=== PATIENT | female | born 1995 | race Caucasian/White ===

== ENCOUNTER 2019-01-13 12:11 | Outpatient (CLI) | payer OTHER | END 2019-01-13 13:55 | disposition home or self-care (01) | LOC: OBT 12:11 → L-D 12:13 → OBT 13:55 | DX: O36.5930 Maternal care for other known or suspected poor fetal growth, third trimester, not applicable or unspecified (principal); Z3A.37 37 weeks gestation of pregnancy | CPT/HCPCS: 76818 ==

== ENCOUNTER 2019-01-17 09:52 | Outpatient (CLI) | payer OTHER | END 2019-01-17 11:55 | disposition home or self-care (01) | LOC: OBT 09:52 → L-D 09:53 → OBT 11:55 | DX: O36.5930 Maternal care for other known or suspected poor fetal growth, third trimester, not applicable or unspecified (principal); Z3A.38 38 weeks gestation of pregnancy | CPT/HCPCS: 76815; 76818 ==

== ENCOUNTER 2019-01-21 11:31 | Outpatient (CLI) | payer OTHER | END 2019-01-21 13:40 | disposition home or self-care (01) | LOC: OBT 11:31 → L-D 11:31 → OBT 13:40 | DX: O46.8X3 Other antepartum hemorrhage, third trimester (principal); O36.8130 Decreased fetal movements, third trimester, not applicable or unspecified; Z3A.38 38 weeks gestation of pregnancy | CPT/HCPCS: 76818 ==

== ENCOUNTER 2019-01-23 03:16 | Inpatient (IN) | payer OTHER ==
[2019-01-23] MEDS ORDERED: LACTATED RINGER'S 1,000 ML IV (03:40)
[2019-01-23] MEDS ORDERED: METHYLERGONOVINE 0.2 MG INJ IM ×2 (04:00→21:00)
[2019-01-23] MEDS ORDERED: OXYTOCIN 30 UNITS/LR 500 ML IV ×2 (04:00→21:00)
[2019-01-23] MEDS ORDERED: MISOPROSTOL 200 MCG TAB PR ×2 (04:00→21:00)
[2019-01-23] MEDS ORDERED: BUTORPHANOL 2 MG INJ IV ×2 (04:00)
[2019-01-23] MEDS ORDERED: CARBOPROST 250 MCG INJ IM ×2 (04:00→21:00)
[2019-01-23] MEDS: AMPICILLIN 2 GM/NS (PMX) 100 ML IV (04:19)
[2019-01-23] MEDS: LACTATED RINGER'S 1,000 ML IV ×3 (04:19→16:38)
[2019-01-23 04:41] LABS: ADD MAN DIFF? NO
[2019-01-23 04:43] LABS: BASOPHIL # 0.1 10^3/ul (0.0-0.1); BASOPHILS % 0.5 % (0.0-2.0); EOSINOPHILS # 0.1 10^3/ul (0.0-0.5); EOSINOPHILS % 0.8 % (0.0-7.0); HEMATOCRIT 37.5 % (37.0-47.0); HEMOGLOBIN 12.9 g/dl (12.0-16.0); LYMPHOCYTES # 2.5 10^3/ul (0.8-2.9); LYMPHOCYTES % 17.8 % (15.0-51.0); MEAN CORPUSCULAR HEMOGLOBIN 32.3 pg (29.0-33.0); MEAN CORPUSCULAR HGB CONC 34.4 g/dl (32.0-37.0); MEAN PLATELET VOLUME 11.9 fl (7.4-10.4); MONOCYTE # 0.9 10^3/ul (0.3-0.9); MONOCYTES % 6.3 % (0.0-11.0); NEUTROPHIL # 10.6 10^3/ul (1.6-7.5); PLATELET COUNT 218 10^3/UL (140-415); RED BLOOD COUNT 3.99 10^6/ul (4.20-5.40); RED CELL DISTRIBUTION WIDTH 11.7 % (11.5-14.5)
[2019-01-23 04:43] LABS: WHITE BLOOD COUNT 14.2 10^3/ul (4.8-10.8)
[2019-01-23 04:54] LABS: ADD UMIC YES; UR AMORPHOUS CRYSTAL FEW /HPF (NONE SEEN); UR ASCORBIC ACID NEGATIVE (NEGATIVE); UR BILIRUBIN (Dip) NEGATIVE (NEGATIVE); UR BLOOD (Dip) 3+ mg/dL (NEGATIVE); UR CLARITY SLIGHTLY CLOUDY (CLEAR); UR COLOR YELLOW (YELLOW); UR GLUCOSE (Dip) NEGATIVE (NEGATIVE); UR KETONES (Dip) NEGATIVE (NEGATIVE); UR LEUKOCYTE ESTERASE (Dip) 3+ Leu/ul (NEGATIVE); UR NITRITE (Dip) NEGATIVE (NEGATIVE); UR RBC 5 /HPF (0-5); UR SQUAMOUS EPITHELIAL CELL FEW /HPF (FEW); UR TOTAL PROTEIN (Dip) NEGATIVE (NEGATIVE); UR UROBILINOGEN (Dip) NEGATIVE (NEGATIVE); UR WBC 22 /HPF (0-5)
[2019-01-23 05:10] LABS: INR 0.78; PT RATIO 0.9
[2019-01-23 05:11] LABS: PARTIAL THROMBOPLASTIN TIME 27.7 Sec (23.0-35.0)
[2019-01-23 05:40] LABS: HEPATITIS B SURFACE ANTIGEN NEGATIVE (NEGATIVE)
[2019-01-23] MEDS ORDERED: NALOXONE (0.4 MG/ML) INJ IV (07:30)
[2019-01-23] MEDS ORDERED: DIPHENHYDRAMINE 50 MG INJ IV (07:30)
[2019-01-23] MEDS ORDERED: FENTAnyl 2MCG/ML-ROPIV 0.2% 100 ML (07:30)
[2019-01-23] MEDS ORDERED: ONDANSETRON 4 MG INJ IV (07:30)
[2019-01-23] MEDS: AMPICILLIN 1 GM/NS (PMX) 50 ML IV ×3 (08:52→16:38)
[2019-01-23 14:48] LABS: RAPID PLASMA REAGIN NONREACTIVE (NR)
[2019-01-23] MEDS: FENTAnyl 2MCG/ML-ROPIV 0.2% 100 ML BAG EPI (16:42)
[2019-01-23] MEDS: MINERAL OIL LIGHT 10 ML VIAL TOP (18:33)
[2019-01-23] MEDS: OXYTOCIN 30 UNITS/LR 500 ML IV ×2 (18:41→18:42)
[2019-01-23] MEDS: LIDOCAINE 1% (MPF) 30 ML INJ INJ (18:42)
[2019-01-23] MEDS: IBUPROFEN 600 MG TAB PO ×2 (19:34→23:50)
[2019-01-23] MEDS ORDERED: OXYCODONE/ASPIRIN (4.88/325) TAB PO ×2 (21:00)
[2019-01-23] MEDS ORDERED: ZOLPIDEM 5 MG TAB PO (21:00)
[2019-01-23] MEDS ORDERED: LANOLIN HPA 1 PKT TOP (21:00)
[2019-01-23] MEDS: SENNA/DOCUSATE NA (8.6MG/50MG) TAB PO (21:37)
[2019-01-23] MEDS: WITCH HAZEL/GLYCERIN PAD PR (21:37)
[2019-01-23] MEDS: BENZOCAINE 20% 56 ML SPRAY TOP (21:38)
[2019-01-24] MEDS: IBUPROFEN 600 MG TAB PO ×4 (05:20→23:51)
[2019-01-24 08:13] LABS: ADD MAN DIFF? NO
[2019-01-24 08:15] LABS: WHITE BLOOD COUNT 16.1 10^3/ul (4.8-10.8)
[2019-01-24 08:15] LABS: BASOPHIL # 0.1 10^3/ul (0.0-0.1); BASOPHILS % 0.3 % (0.0-2.0); EOSINOPHILS % 0.2 % (0.0-7.0); HEMATOCRIT 31.8 % (37.0-47.0); HEMOGLOBIN 10.8 g/dl (12.0-16.0); LYMPHOCYTES # 2.7 10^3/ul (0.8-2.9); LYMPHOCYTES % 16.6 % (15.0-51.0); MEAN CORPUSCULAR VOLUME 94.1 fl (82.0-101.0); MEAN PLATELET VOLUME 11.9 fl (7.4-10.4); NEUTROPHIL # 12.3 10^3/ul (1.6-7.5); NEUTROPHILS % 76.3 % (39.0-77.0); PLATELET COUNT 170 10^3/UL (140-415); RED BLOOD COUNT 3.38 10^6/ul (4.20-5.40); RED CELL DISTRIBUTION WIDTH 11.9 % (11.5-14.5)
[2019-01-24] MEDS: SENNA/DOCUSATE NA (8.6MG/50MG) TAB PO ×2 (09:13→20:39)
[2019-01-25] MEDS: IBUPROFEN 600 MG TAB PO ×2 (05:39→12:24)
[2019-01-25 07:10] LABS: ADD MAN DIFF? NO
[2019-01-25 07:17] LABS: BASOPHILS % 0.2 % (0.0-2.0); EOSINOPHILS # 0.2 10^3/ul (0.0-0.5); EOSINOPHILS % 1.1 % (0.0-7.0); HEMATOCRIT 30.8 % (37.0-47.0); HEMOGLOBIN 10.4 g/dl (12.0-16.0); LYMPHOCYTES # 2.8 10^3/ul (0.8-2.9); LYMPHOCYTES % 21.2 % (15.0-51.0); MEAN CORPUSCULAR HEMOGLOBIN 32.2 pg (29.0-33.0); MEAN CORPUSCULAR HGB CONC 33.8 g/dl (32.0-37.0); MEAN CORPUSCULAR VOLUME 95.4 fl (82.0-101.0); MEAN PLATELET VOLUME 11.4 fl (7.4-10.4); MONOCYTE # 0.6 10^3/ul (0.3-0.9); MONOCYTES % 4.6 % (0.0-11.0); NEUTROPHIL # 9.7 10^3/ul (1.6-7.5); NEUTROPHILS % 72.3 % (39.0-77.0); PLATELET COUNT 184 10^3/UL (140-415); RED BLOOD COUNT 3.23 10^6/ul (4.20-5.40); RED CELL DISTRIBUTION WIDTH 12.2 % (11.5-14.5)
[2019-01-25 07:17] LABS: WHITE BLOOD COUNT 13.4 10^3/ul (4.8-10.8)
[2019-01-25] MEDS: SENNA/DOCUSATE NA (8.6MG/50MG) TAB PO (09:06)
[2019-01-25] MEDS: DIPHTH/TET/ACEL PERTUSS (ADULT) 0.5 ML VIAL IM* (09:24)
== END 2019-01-25 18:22 | disposition home or self-care (01) | DRG 807 ==
LOC: OBT 03:16 → L-D 03:17 → OBT 03:40 → L-D 03:40 → PP1 20:12
PROC: 10E0XZZ Delivery of Products of Conception, External Approach (ICD-10-PCS; principal; 2019-01-23)
PROC: 0UQGXZZ Repair Vagina, External Approach (ICD-10-PCS; 2019-01-23)
PROC: 0W8NXZZ Division of Female Perineum, External Approach (ICD-10-PCS; 2019-01-23)
PROC: 4A1HXCZ Monitoring of Products of Conception, Cardiac Rate, External Approach (ICD-10-PCS; 2019-01-23)
DX: O99.824 Streptococcus B carrier state complicating childbirth (principal); Z37.0 Single live birth; Z3A.38 38 weeks gestation of pregnancy; O71.4 Obstetric high vaginal laceration alone
CPT/HCPCS: 62322; 81001; 85025; 85610; 85730; 86592; 86850; 86900; 86901; 87086; 87340; 99464